=== PATIENT | female | born 1930 | race Hispanic/Latino ===

== ENCOUNTER → 2018-03-30 | Outpatient (CLI) | payer MEDICARE ==
[~2018-03-30] MED LIST: HONEY 1 APPL/ML TUBE TP ONE
[2018-03-30 14:44] VITALS: BP 149/63
== END | disposition home or self-care (01) ==
LOC: WHH 10:52
PROVIDERS: ATTEND Podiatrist Foot & Ankle Surgery
DX: I83.015 Varicose veins of right lower extremity with ulcer other part of foot (principal); L97.511 Non-pressure chronic ulcer of other part of right foot limited to breakdown of skin
CPT/HCPCS: 11042; A4450; A6450

== ENCOUNTER → 2018-04-06 | Outpatient (CLI) | payer MEDICARE, MEDICAID ==
[~2018-04-06] MED LIST changes: -HONEY 1 APPL/ML TUBE TP ONE; +LIDOCAINE/PRILOCAINE CREAM 5GM TUBE TP ONE
[2018-04-06 13:38] VITALS: BP 160/57
== END | disposition home or self-care (01) ==
LOC: WHH 08:30
PROVIDERS: ATTEND Podiatrist Foot & Ankle Surgery
DX: I83.015 Varicose veins of right lower extremity with ulcer other part of foot (principal); L97.511 Non-pressure chronic ulcer of other part of right foot limited to breakdown of skin
CPT/HCPCS: 11042; A6209; A6456; J3490

== ENCOUNTER → 2018-04-13 | Outpatient (CLI) | payer MEDICARE, MEDICAID ==
[2018-04-13 09:17] VITALS: BP 159/54
== END | disposition home or self-care (01) ==
LOC: WHH 08:35
PROVIDERS: ATTEND Podiatrist Foot & Ankle Surgery
DX: I83.015 Varicose veins of right lower extremity with ulcer other part of foot (principal); L97.511 Non-pressure chronic ulcer of other part of right foot limited to breakdown of skin
CPT/HCPCS: 15275; 87070; A6196; L3260; Q4133

== ENCOUNTER → 2018-04-20 | Outpatient (CLI) | payer MEDICARE, MEDICAID ==
[~2018-04-20] MED LIST changes: +LIDOCAINE PF 2% 5ML ABBOJECT ONE; -LIDOCAINE/PRILOCAINE CREAM 5GM TUBE TP ONE; +MIDAZOLAM HCL 1 MG/ML 2ML VIAL ONE; +PROPOFOL 10 MG/ML 20ML VIAL IV ONE; +ROCURONIUM BROMIDE 10MG/1ML 5ML VL ONE
[2018-04-20 09:33] LABS: BASOPHILS % (AUTO) 0.6 % (0.0-5.0); EOSINOPHILS % (AUTO) 1.2 % (0.0-8.0); LYMPHOCYTES % (AUTO) 19.2 % (21.0-51.0); MEAN CORPUSCULAR HEMOGLOBIN 32.1 pg (27.0-33.0); MEAN CORPUSCULAR HGB CONC 35.2 g/dL (32.0-36.0); MEAN CORPUSCULAR VOLUME 91.1 fL (79-99); MONOCYTES % (AUTO) 10.3 % (3.0-13.0); NEUTROPHILS % (AUTO) 68.7 % (40.0-77.0); PLATELET COUNT (AUTO) 303 K/uL (130-400); RED BLOOD CELL COUNT(AUTO) 3.73 MIL/uL (4.00-5.50); RED CELL DISTRIBUTION WIDTH 12.7 % (11.0-15.5); WHITE BLOOD COUNT (AUTO) 6.4 K/uL (4.8-10.8)
[2018-04-20 09:41] LABS: POTASSIUM 3.3 mmol/L (3.5-5.1)
[2018-04-20 10:18] VITALS: BP 156/55
[2018-04-20 10:51] LABS: ERYTHROCYTE SEDIMENTATION RATE 50 MM/HR (0-15)
== END | disposition home or self-care (01) ==
LOC: WHH 08:30
PROVIDERS: ATTEND Podiatrist Foot & Ankle Surgery
DX: I83.015 Varicose veins of right lower extremity with ulcer other part of foot (principal); L97.511 Non-pressure chronic ulcer of other part of right foot limited to breakdown of skin
CPT/HCPCS: 15275; 36415; 80048; 84134; 85025; 85651; A6196; A6207; Q4133; J2001; J2250; J2704; J3490

== ENCOUNTER → 2018-04-27 | Outpatient (CLI) | payer MEDICARE, MEDICAID ==
[2018-04-27 16:37] VITALS: BP 157/55
== END | disposition home or self-care (01) ==
LOC: WHH 08:55
PROVIDERS: ATTEND Podiatrist Foot & Ankle Surgery
DX: I83.015 Varicose veins of right lower extremity with ulcer other part of foot (principal); L97.511 Non-pressure chronic ulcer of other part of right foot limited to breakdown of skin; M81.0 Age-related osteoporosis without current pathological fracture; M19.90 Unspecified osteoarthritis, unspecified site
CPT/HCPCS: 15275; A6196; A6207; Q4133